=== PATIENT | male | born 1980 ===

== ENCOUNTER 2022-03-17 15:36 | Emergency (ER) | payer SELFPAY ==
[2022-03-17 15:57] VITALS: BP 125/83
[2022-03-17] MEDS ORDERED: MORPHINE 4 MG/1 ML INJ IV ONE (16:03)
[2022-03-17] MEDS ORDERED: ONDANSETRON 4 MG/2 ML INJ IV ONE (16:03)
[2022-03-17] MEDS ORDERED: TETANUS,DIPH,PERTUSS(ACELL) VACCINE 0.5 ML SYRINGE IM ONE (16:10)
[2022-03-17] MEDS ORDERED: ceFAZolin 1 GM VIAL IM ONE (16:10)
[2022-03-17] MEDS ORDERED: HYDROcodone/ACETAMINOPHEN 5-325 MG TAB PO ONE (16:10)
--- NOTE | 2022-03-17 16:10 | Event Note ---
ED Screening Note ED Screening Note: Work injury -traumatic partial amputation of tip his left second digit actively bleeding pressure. 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 In the setting of a significantly high volume and record number of patients presenting to the emergency department and the fact that we have a limited space to see patients we have implemented the provider in triage protocol this allows an expedited initial exam of patients that might otherwise have left without being seen or who would wait longer than usual to be seen by provider. I interviewed the patient and performed a limited physical exam. This patient is a pulled from the waiting room to triage room for an initial assessment of adrenal studies and then returned to the waiting room pending results of the studies. The ultimate final evaluation and disposition may be performed by another provider depending on room and provider availability.
[2022-03-17] MEDS ORDERED: ONDANSETRON 4 MG ODT TAB PO ONE (16:11)
--- NOTE | 2022-03-17 16:36 | XRay Report ---
Left hand, 2 views HISTORY: Trauma, finger COMPARISON: None FINDINGS: Evidence of soft tissue injury of the distal tip of the left index finger. There is acute f racture of the terminal tuft of the distal phalanx with additional fracture noted along the ulnar asp ect of the distal phalanx base. Small ossific fragments are noted at the distal tip of the finger. No discrete radiopaque foreign body. No other significant abnormality. IMPRESSION: Soft tissue laceration of the distal tip of the index finger with fracture of the distal phalanx, as above. Signer Name: Barry Black MD Signed: 03/17/2022 4:32 PM Workstation Name: [email or web address]
--- NOTE | 2022-03-17 17:27 | Emergency Department Report ---
ED General Adult HPI - General Chief complaint: Wound/Laceration Stated complaint: CUT FINGER/LAC PUI?: No Time Seen by Provider: 03/17/22 16:09 Source: patient Mode of arrival: Ambulatory Limitations: Language Barrier - History of Present Illness Initial comments: Patient presrent to ED with laceration on left hand first finger -: Sudden, hour(s) Location: upper extremity Severity scale (0 -10): 10 Quality: aching Consistency: constant Improves with: none Worsens with: none Associated Symptoms: denies: denies other symptoms, confusion, chest pain, cough, diaphoresis Treatments Prior to Arrival: none - Related Data Previous Rx's Medication Instructions Recorded Last Taken Type HYDROcodone/ACETAMINOPHEN 1 each PO TID PRN #14 03/17/22 Unknown Rx [Hydrocodone-Acetamin 7.5-300] Ondansetron [Zofran Odt] 4 mg PO Q8HR #14 tab.rapdis 03/17/22 Unknown Rx cephALEXin [Keflex] 500 mg PO Q12HR #14 cap 03/17/22 Unknown Rx Allergies Allergy/AdvReac Type Severity Reaction Status Date / Time No Known Allergies Allergy Verified 03/17/22 15:57 ED Review of Systems ROS: Stated complaint: CUT FINGER/LAC Other details as noted in HPI Constitutional: denies: chills, fever Eyes: denies: eye pain, eye discharge, vision change ENT: denies: ear pain, throat pain Respiratory: denies: cough, shortness of breath, wheezing Cardiovascular: denies: chest pain, palpitations Endocrine: no symptoms reported Gastrointestinal: denies: abdominal pain, nausea, diarrhea Genitourinary: denies: urgency, dysuria Musculoskeletal: denies: back pain, joint swelling, arthralgia Skin: denies: rash, lesions Neurological: denies: headache, weakness, paresthesias Psychiatric: denies: anxiety, depression Hematological/Lymphatic: denies: easy bleeding, easy bruising ED Past Medical Hx - Past Medical History Previous Medical History?: No Hx Hypertension: No - Surgical History Past Surgical History?: No - Social History Smoking Status: Never Smoker Substance Use Type: None - Medications Home Medications: Home Medications Medication Instructions Recorded Confirmed Last Taken Type HYDROcodone/ACETAMINOPHEN 1 each PO TID PRN #14 03/17/22 Unknown Rx [Hydrocodone-Acetamin 7.5-300] Ondansetron [Zofran Odt] 4 mg PO Q8HR #14 tab.rapdis 03/17/22 Unknown Rx cephALEXin [Keflex] 500 mg PO Q12HR #14 cap 03/17/22 Unknown Rx ED Physical Exam - General Limitations: Language Barrier General appearance: alert, in no apparent distress - Head Head exam: Present: atraumatic, normocephalic - Eye Eye exam: Present: normal appearance - ENT ENT exam: Present: mucous membranes moist - Neck Neck exam: Present: normal inspection - Respiratory Respiratory exam: Present: normal lung sounds bilaterally. Absent: respiratory distress - Cardiovascular Cardiovascular Exam: Present: regular rate, normal rhythm. Absent: systolic murmur, diastolic murmur, rubs, gallop - GI/Abdominal GI/Abdominal exam: Present: soft, normal bowel sounds - Rectal Rectal exam: Present: deferred - Extremities Exam Extremities exam: Present: normal inspection - Expanded Upper Extremity Exam Left Hand Wrist exam: Present: laceration - Back Exam Back exam: Present: normal inspection - Neurological Exam Neurological exam: Present: alert, oriented X3 - Psychiatric Psychiatric exam: Present: normal affect, normal mood - Skin Skin exam: Present: warm, dry, intact, normal color. Absent: rash ED Course Vital Signs 03/17/22 15:54 Temperature 98.6 F Pulse Rate 94 H Blood Pressure 125/83 [Right] O2 Sat by Pulse 95 Oximetry - Laceration /Wound Repair Left Finger Wound Location: upper extremity Wound Explored: clean Betadine Prep?: Yes Anesthesia: 1% Lidocaine Volume Anesthetic (ccs): 20 Wound Debrided: minimal Wound Repaired With: sutures Suture Size/Type: 5:0, 4:0 Number of Sutures: 14 Layer Closure?: No Sterile Dressing Applied?: Yes ED Medical Decision Making - Radiology Data Radiology results: report reviewed, image reviewed - Medical Decision Making tetanus , abx and lac repair Critical care attestation.: If time is entered above; I have spent that time in minutes in the direct care of this critically ill patient, excluding procedure time. ED Disposition Clinical Impression: Fracture of finger, left, open Disposition: HOME / SELF CARE / HOMELESS Is pt being admited?: No Does the pt Need Aspirin: No Condition: Stable Instructions: Finger Fracture, Adult, [id number] Referrals: RAFAEL ARROYO MD [Staff Physician] - 3-5 Days
[2022-03-17] MEDS ORDERED: SODIUM CHLORIDE 0.9% 1000 ML 1,000 ML ONE (22:02)
== END 2022-03-17 18:57 | disposition home or self-care (01) ==
LOC: ED 15:36
DX: S62.631B Displaced fracture of distal phalanx of left index finger, initial encounter for open fracture (principal); Z79.899 Other long term (current) drug therapy; W26.8XXA Contact with other sharp object(s), not elsewhere classified, initial encounter; Y93.89 Activity, other specified; Y92.89 Other specified places as the place of occurrence of the external cause; Y99.8 Other external cause status
CPT/HCPCS: 12001; 73120; 90471; 90715; 96372; 99283; J0690; J7030; J3490; Q0162